=== PATIENT | female | born 2000 | race Caucasian/White ===

== ENCOUNTER 2022-04-27 21:14 | Emergency (ER) | payer OTHER ==
[~2022-04-27] VITALS: Ht 180.3 cm; Wt 79.5 kg
[2022-04-27 21:26] VITALS: BP 143/99; TEMP 98.8
[2022-04-27] MEDS ORDERED: CRUTCHES MC (22:00)
[2022-04-27 22:20] VITALS: PULSE 82
== END 2022-04-27 22:20 | disposition home or self-care (01) ==
LOC: COL.ER 21:14
DX: S93.401A Sprain of unspecified ligament of right ankle, initial encounter (principal); X50.1XXA Overexertion from prolonged static or awkward postures, initial encounter; Y93.01 Activity, walking, marching and hiking